=== PATIENT | male | born 1950 | race Caucasian/White ===

== ENCOUNTER 2016-06-13 08:53 | Outpatient (CLI) | payer OTHER ==
[2016-06-13 12:37] LABS: #Eosinphils 0.5 thou/uL (0.0-0.7); #Lymphocytes 1.6 thou/uL (1.20-3.40); #Monocytes 0.5 thou/uL (0.11-0.59); #Neutrophils 4.1 thou/uL (1.40-6.50); %Basophils 0.5 % (0.0-1.0); %Eosinophils 7.3 % (0.0-10.0); %Lymphocytes 24.3 % (21.0-51.0); %Monocytes 6.9 % (0.0-10.0); Hematocrit 46.4 % (42.0-52.0); Mean Platelet Volume 6.9 fL (7.4-10.4); Red Blood Cell (RBC) Count 5.25 mill/uL (4.70-6.10); White Blood Cell (WBC) Count 6.8 thou/uL (4.8-10.8)
[2016-06-13 12:43] LABS: ALT (SGPT) 29 U/L (0-55); AST (SGOT) 19 U/L (5-34); Alkaline Phosphatase 67 U/L (40-150); Anion Gap 12 mmol/L (10-20); BUN (Urea Nitrogen) 17 mg/dL (8.4-25.7); Bilirubin, Direct 0.2 mg/dL (0.1-0.3); Bilirubin, Total 0.5 mg/dL (0.2-1.2); Calc. Creatinine Clearance 0 mL/min (70-130); Calcium 9.1 mg/dL (7.8-10.44); Carbon Dioxide 26 mmol/L (23-31); Chloride 106 mmol/L (98-107); Estimated GFR-MDRD 81; LDL Cholesterol, Calculated 109 mg/dL
[2016-06-13 13:15] LABS: Hemoglobin A1c 5.4 % (4.0-6.0)
== END 2016-06-13 08:54 ==
LOC: NAVSJIPCSP 08:53
PROVIDERS: ATTEND Family Medicine
DX: L30.9 Dermatitis, unspecified (principal); I10 Essential (primary) hypertension; M19.90 Unspecified osteoarthritis, unspecified site
CPT/HCPCS: 36415; 80048; 80061; 80076; 83036; 84443; 85025

== ENCOUNTER 2016-12-10 08:33 | Outpatient (CLI) | payer OTHER ==
[2016-12-10 14:10] LABS: #Eosinphils 0.5 thou/uL (0.0-0.7); #Lymphocytes 1.5 thou/uL (1.20-3.40); #Monocytes 0.5 thou/uL (0.11-0.59); #Neutrophils 4.1 thou/uL (1.40-6.50); %Basophils 0.5 % (0.0-1.0); %Eosinophils 7.4 % (0.0-10.0); %Lymphocytes 22.7 % (21.0-51.0); %Monocytes 7.7 % (0.0-10.0); %Neutrophils 61.8 % (42.0-75.0); Hemoglobin 15.3 g/dL (14.0-18.0); Mean Corpuscular Volume 87.7 fl (80.0-94.0); Platelet Count 192 thou/uL (130-400); RBC Distribution Width 12.1 % (11.5-14.5); Red Blood Cell (RBC) Count 5.28 mill/uL (4.70-6.10); White Blood Cell (WBC) Count 6.7 thou/uL (4.8-10.8)
[2016-12-10 14:26] LABS: ALT (SGPT) 31 U/L (8-55); AST (SGOT) 22 U/L (5-34); Albumin 4.5 g/dL (3.4-4.8); Alkaline Phosphatase 65 U/L (40-150); Anion Gap 16 mmol/L (10-20); BUN (Urea Nitrogen) 16 mg/dL (8.4-25.7); Bilirubin, Direct 0.2 mg/dL (0.1-0.3); Bilirubin, Total 0.6 mg/dL (0.2-1.2); Calc. Creatinine Clearance 0 mL/min (70-130); Calcium 9.6 mg/dL (7.8-10.44); Carbon Dioxide 24 mmol/L (23-31); Cardiac Risk 4.7 (Less than 4.5); Chloride 104 mmol/L (98-107); Cholesterol 186 mg/dl (< 200 Desired); Estimated GFR-MDRD 75; Glucose 97 mg/dL (80-115); HDL Cholesterol 40 mg/dL (>60 Neg Risk); LDL Cholesterol, Calculated 97 mg/dL; Potassium 3.5 mmol/L (3.5-5.1); Protein, Total 7.3 g/dL (5.8-8.1); Sodium 140 mmol/L (136-145); Triglycerides 244 mg/dL (Less than 150)
[2016-12-10 15:02] LABS: Hemoglobin A1c 5.5 % (4.0-6.0)
== END 2016-12-10 08:34 | disposition home or self-care (01) ==
LOC: NAVSJIPCSP 08:33
PROVIDERS: ATTEND Family Medicine
DX: L30.9 Dermatitis, unspecified (principal); I10 Essential (primary) hypertension; M19.90 Unspecified osteoarthritis, unspecified site; Z79.899 Other long term (current) drug therapy
CPT/HCPCS: 36415; 80048; 80061; 80076; 83036; 84443; 85025

== ENCOUNTER 2020-09-15 10:03 | Outpatient (CLI) | payer MEDICARE | END 2020-09-15 10:04 | disposition home or self-care (01) | LOC: NAV RAD 10:03 | PROVIDERS: ATTEND Family Medicine | DX: R20.2 Paresthesia of skin (principal); M47.816 Spondylosis without myelopathy or radiculopathy, lumbar region | CPT/HCPCS: 72100 ==

== ENCOUNTER 2024-03-09 04:19 | Emergency (ER) | payer MEDICARE ==
[2024-03-09] MEDS ORDERED: Ondansetron ODT 4 MG TAB ONE (04:38)
[2024-03-09 04:58] LABS: #Eosinophils 0.3 thou/uL (0.0-0.7); #Lymphocytes 1.1 thou/uL (1.20-3.40); #Monocytes 0.8 thou/uL (0.11-0.59); #Neutrophils 11.2 thou/uL (1.40-6.50); %Basophils 0.3 % (0.0-1.0); %Eosinophils 2.2 % (0.0-10.0); %Lymphocytes 8.4 % (21.0-51.0); %Monocytes 5.6 % (0.0-10.0); %Neutrophils 83.5 % (42.0-75.0); Hematocrit 44.6 % (42.0-52.0); Mean Corpuscular HGB CONC 33.6 g/dL (32.0-36.0); Mean Corpuscular Hemoglobin 28.3 pg (27.0-31.0); Mean Corpuscular Volume 84.2 fl (78.0-98.0); Mean Platelet Volume 6.1 fL (7.4-10.4); Platelet Count 298 10x3/uL (130-400); RBC Distribution Width 11.8 % (11.5-14.5); Red Blood Cell (RBC) Count 5.29 mill/uL (4.70-6.10); White Blood Cell (WBC) Count 13.4 10x3/uL (4.8-10.8)
[2024-03-09 05:15] LABS: ALT (SGPT) 27 U/L (8-55); AST (SGOT) 16 U/L (5-34); Albumin 3.7 g/dL (3.4-4.8); Alkaline Phosphatase 78 U/L (40-110); Anion Gap 18 mmol/L (10-20); BUN (Urea Nitrogen) 46 mg/dL (8.4-25.7); Bilirubin, Total 0.6 mg/dL (0.2-1.2); Calc. Creatinine Clearance 0 mL/min (70-130); Calcium 9.2 mg/dL (7.8-10.44); Carbon Dioxide 17 mmol/L (23-31); Chloride 102 mmol/L (98-107); Estimated GFR 31; Globulin 3.2 g/dL (2.4-3.5); Glucose 146 mg/dL (83-110); Lipase 39 U/L (8-78); Potassium 3.7 mmol/L (3.5-5.1); Protein, Total 6.9 g/dL (5.8-8.1); Sodium 133 mmol/L (136-145)
[2024-03-09] MEDS ORDERED: Morphine 2 MG/ML VIAL ONE (05:38)
[2024-03-09] MEDS ORDERED: Sodium Chloride 0.9% 1,000 ML ONE ×2 (05:39→07:08)
[2024-03-09] MEDS ORDERED: Pantoprazole 40 MG VIAL ONE (05:39)
[2024-03-09] MEDS ORDERED: Ondansetron PF 4 MG/2 ML Vial ONE (05:39)
[2024-03-09 05:53] LABS: Troponin I Less than 0.010 ng/mL (< 0.028)
[2024-03-09 06:57] LABS: Bilirubin Moderate (Negative); Blood, Urine Negative (Negative); Clarity Clear (Clear); Glucose, Urine (Dipstick) Negative (Negative); Ketone, Urine 15 mg/dL (Negative); Leukocyte Negative (Negative); Nitrite Negative (Negative); Protein, Urine (Dipstick) Trace mg/dL (Neg-Trace); Specific Gravity, Urine 1.025 (1.005-1.030); Urobilinogen 0.2 mg/dL (Less than 2)
[2024-03-09 07:01] LABS: Bacteria/HPF Rare-Few HPF (None Seen); CAUTI Indications for Culture Pelvic or flank pain; RBC/HPF 0-3 HPF (0-3)
[2024-03-09 07:03] LABS: Urine Culture Reflex No No
[2024-03-09 08:37] LABS: Anion Gap 15 mmol/L (10-20); BUN (Urea Nitrogen) 43 mg/dL (8.4-25.7); Calc. Creatinine Clearance 0 mL/min (70-130); Calcium 8.4 mg/dL (7.8-10.44); Carbon Dioxide 22 mmol/L (23-31); Chloride 104 mmol/L (98-107); Estimated GFR 35; Glucose 118 mg/dL (83-110); Potassium 3.8 mmol/L (3.5-5.1); Sodium 137 mmol/L (136-145)
== END 2024-03-09 09:15 | disposition home or self-care (01) ==
LOC: NAV ERS 04:19
DX: R10.9 Unspecified abdominal pain (principal); R19.7 Diarrhea, unspecified; E86.0 Dehydration; I10 Essential (primary) hypertension; E78.5 Hyperlipidemia, unspecified; Z79.899 Other long term (current) drug therapy
CPT/HCPCS: 74176; 80053; 81001; 83605; 83690; 84484; 85025; 93005; 96361; 96374; 96375; J2272; J2405; J2470; J7030; Q0162

== ENCOUNTER 2024-06-19 21:17 | Emergency (ER) | payer MEDICARE ==
[2024-06-19] MEDS ORDERED: Sodium Chloride 0.9% 1,000 ML ONE ×2 (21:46→22:57)
[2024-06-19] MEDS ORDERED: Pantoprazole 40 MG VIAL ONE (21:46)
[2024-06-19] MEDS ORDERED: Ondansetron PF 4 MG/2 ML Vial ONE (21:46)
[2024-06-19 22:00] LABS: #Eosinophils 0.1 thou/uL (0.0-0.7); #Lymphocytes 0.5 thou/uL (1.20-3.40); #Monocytes 0.4 thou/uL (0.11-0.59); #Neutrophils 7.7 thou/uL (1.40-6.50); %Basophils 0.3 % (0.0-1.0); %Eosinophils 0.8 % (0.0-10.0); %Lymphocytes 6.1 % (21.0-51.0); %Monocytes 4.9 % (0.0-10.0); %Neutrophils 87.9 % (42.0-75.0); Hematocrit 48.5 % (42.0-52.0); Hemoglobin 15.2 g/dL (14.0-18.0); Mean Corpuscular HGB CONC 31.4 g/dL (32.0-36.0); Mean Corpuscular Hemoglobin 26.8 pg (27.0-31.0); Mean Corpuscular Volume 85.5 fl (78.0-98.0); Mean Platelet Volume 6.7 fL (7.4-10.4); Platelet Count 209 10x3/uL (130-400); Red Blood Cell (RBC) Count 5.67 mill/uL (4.70-6.10); White Blood Cell (WBC) Count 8.7 10x3/uL (4.8-10.8)
[2024-06-19 22:26] LABS: ALT (SGPT) 32 U/L (Less than 45); AST (SGOT) 27 U/L (11-34); Albumin 4.2 g/dL (3.1-4.5); Alkaline Phosphatase 79 U/L (40-110); Anion Gap 17 mmol/L (10-20); BUN (Urea Nitrogen) 31 mg/dL (8.4-25.7); Calc. Creatinine Clearance 0 mL/min (70-130); Calcium 10.4 mg/dL (7.8-10.44); Carbon Dioxide 25 mmol/L (23-31); Chloride 102 mmol/L (98-107); Estimated GFR 41; Globulin 3.5 g/dL (2.4-3.5); Glucose 142 mg/dL (83-110); Lipase 25 U/L (8-78); Potassium 3.9 mmol/L (3.5-5.1); Protein, Total 7.7 g/dL (5.8-8.1); Sodium 140 mmol/L (136-145)
[2024-06-19 22:29] LABS: Bilirubin Small (Negative); Blood, Urine Negative (Negative); Clarity Clear (Clear); Glucose, Urine (Dipstick) Negative (Negative); Ketone, Urine Trace mg/dL (Negative); Leukocyte Negative (Negative); Nitrite Negative (Negative); Protein, Urine (Dipstick) 30 mg/dL (Neg-Trace); Specific Gravity, Urine 1.026 (1.002-1.036); Urobilinogen 0.2 mg/dL (Less than 2)
[2024-06-19 22:33] LABS: RBC/HPF 0-3 HPF (0-3)
[2024-06-19 22:34] LABS: Bacteria/HPF Rare-Few HPF (None Seen); CAUTI Indications for Culture Dysuria,urgency,freq; Calcium Oxalate Crystals 2+ HPF (None Seen); Squamous Epithelial 0-3 HPF (0-3); WBC/HPF 0-3 HPF (0-3)
[2024-06-19 22:35] LABS: Urine Culture Reflex No No
== END 2024-06-19 23:51 | disposition home or self-care (01) ==
LOC: NAV ERS 21:17
DX: K29.00 Acute gastritis without bleeding (principal); K52.9 Noninfective gastroenteritis and colitis, unspecified; E78.5 Hyperlipidemia, unspecified; I10 Essential (primary) hypertension; Z79.899 Other long term (current) drug therapy
CPT/HCPCS: 80053; 81001; 83690; 85025; 96361; 96374; J2405; J2470; J7030